=== PATIENT | male | born 1970 | race Caucasian/White ===

== ENCOUNTER 2021-10-06 16:11 | Emergency (ER) | payer BC, SELFPAY ==
--- NOTE | 2021-10-06 18:07 | XR_ITS ---
20 PROCEDURE INFORMATION: Exam: XR Right Wrist Exam date and time: 10/06/2021 6:07 PM Age: 51 years old Clinical indication: Wrist; Right; Prior surgery; Surgery date: 6+ months; Surgery type: PT had fractures of radius and ulna when he was 13 yr old; Patient HX: Pain near RT thumb no known trauma TECHNIQUE: Imaging protocol: XR Right wrist. Views: 3 or more views. COMPARISON: CR XR HAND RT MIN 3V 10/06/2021 6:04 PM FINDINGS: Bones/joints: There is subtle cortical contour discontinuity involving the mid scaphoid worrisome for scaphoid fracture. Otherwise, there is no evidence of acute fracture or dislocation. Joint spaces appear preserved. Mild degenerative changes involve the 1st carpal/metacarpal joint manifest by mild joint space narrowing and subchondral sclerosis. Cortical thickening involving the distal ulna is consistent with history of remote fracture. Soft tissues: No significant soft tissue edema. No subcutaneous emphysema or radiopaque foreign bodies. IMPRESSION: Findings suggest subtle nondisplaced acute midpole scaphoid fracture.
--- NOTE | 2021-10-06 18:07 | XR_ITS ---
PROCEDURE INFORMATION: Exam: XR Right Hand Exam date and time: 10/06/2021 6:07 PM Age: 51 years old Clinical indication: Pain; Hand; Right; Additional info: Pain near thumb no known trauma TECHNIQUE: Imaging protocol: XR Right hand. Views: 3 or more views. COMPARISON: No relevant prior studies available. FINDINGS: Bones/joints: There is no evidence of acute fracture or dislocation. Joint spaces appear preserved. Soft tissues: No significant soft tissue edema. No subcutaneous emphysema or radiopaque foreign bodies. IMPRESSION: No acute posttraumatic osseous injury.
[2021-10-06 18:19] VITALS: BP 157/88; PULSE 73; RESP 18; TEMP 37.3; O2SAT 97; BMI 36.9
--- NOTE | 2021-10-06 18:56 | HMH.EDUTC ---
[facility] [place] Disposition Clinical Impression: Right hand pain Scaphoid fracture Qualifiers: Encounter type: initial encounter Scaphoid bone location: unspecified portion of scaphoid Fracture type: closed Fracture alignment: nondisplaced Laterality: right Qualified Code(s): S62.001A - Unspecified fracture of navicular [scaphoid] bone of right wrist, initial encounter for closed fracture Disposition: Home, Self-Care Condition on Discharge: Good Instructions: Wrist Fracture Additional Instructions: Rest the extremity, Elevate the extremity as tolerated while you are resting. Take ibuprofen for pain. I sent in a prescription to your pharmacy. Follow up with the hand specialist at . They have a hand clinic that you need to be seen in. Please call them at to get an appointment. If a scaphoid fracture is not treated properly it can cause lasting nerve damage. Follow up with your regular doctor. GO TO THE ER FOR ANY WORSENING SYMPTOMS Referrals: Hilton Dillon [Primary Care Provider] - Time of Disposition: 20:32 Medical Decision Making - Medical Records Medical records reviewed: No: I reviewed the patient's medical records. - [place] Inquiry Pt receiving controlled substance: No Vital Signs: 10/06/21 18:19 10/06/21 20:46 Temperature 99.2 F 99.2 F Temperature Source Oral Pulse Rate 73 Pulse Rate [Left] 73 Respiratory Rate 18 18 Blood Pressure 157/88 H Blood Pressure [Right Arm] 157/88 H Blood Pressure Mean [Right Arm] 111 02 Sat by Pulse Oximetry 97 Medical Decision Narrative: He refuses a splint to be put on his hand and wrist. [facility] [place] HPI - General Stated complaint: swelling in R thumb Time Seen by Provider: 10/06/21 18:56 Mode of Arrival: Ambulatory Source of Information: Patient Limitations: No Limitations Description of Symptoms (Recalled from Triage Doc. by RN): pt c/o pain, swelling and redness in his R thumb and palm. pt states it started swelling last night but didn't become painful until this am. pt denies any injury. HEENT Symptoms (Recalled from RN notes): No Resp Symptoms (Recalled from RN notes): No Skin Symptoms (Recalled from RN notes): No MS Symptoms (Recalled from RN notes): Yes Functional Status (Recalled from RN notes): wnl - History of Present Illness Provider Complaint: He c/o pain of his right hand and wrist for the past approx 2 weeks. He denies any known injury. He has not fallen, been in an mva, used a hammer to beat anything, etc. He states that it just started hurting one day. His pain is most centralized around the base of his thumb and the snuff box. He is also having numbness of an area on the palmar aspect of that thumb, but no where else. - Related Data Allergies Allergy/AdvReac Type Severity Reaction Status Date / Time Penicillins Allergy Verified 10/06/21 18:23 - Worker's Comp Is this a Worker's Comp case?: No [facility] [place] History - Hepatitis A Screen Drug use history?: No High risk sexual behaviors?: No History of sexually transmitted infection?: No Currently employed?: No Childcare worker?: No Do you have indoor plumbing?: Yes Do you have electricity?: Yes Attestation statement:: This patient has been screened for Hepatitis A risk factors. I have reviewed the patient's past medical history: Yes ROS Obtained: Yes All systems reviewed & no additional complaints - Constitutional Constitutional: Denies chills, Denies fever(s) - Musculoskeletal Musculoskeletal: Reports as per HPI - Integumentary/Breasts Skin/Breast: Denies redness, Denies rash, Denies wounds Physical Exam - General General appearance: alert, in no apparent distress - Head Head exam: atraumatic, normocephalic, normal inspection - Eye Eye exam: Present: normal appearance, PERRL, EOMI - ENT ENT exam: Present: normal exam, normal oropharynx, mucous membranes moist, TM's normal bilaterally, normal external ear exam - Neck Neck exam: Present: nor
[2021-10-06 20:46] VITALS: BP 157/88; PULSE 73; RESP 18; TEMP 37.3
== END 2021-10-06 20:49 | disposition home or self-care (01) ==
PROVIDERS: Emergency Provider Nurse Practitioner Family; PCP Internal Medicine
DX: S62.001A Unspecified fracture of navicular [scaphoid] bone of right wrist, initial encounter for closed fracture (principal)
CPT/HCPCS: 29125; 73110; 73130; 99203; G0463